=== PATIENT | female | born 1955 | race Caucasian/White ===

== ENCOUNTER 2019-06-02 10:57 | Emergency (ER) | payer BC ==
[~2019-06-02] VITALS: Ht 162.6 cm; Wt 113.4 kg
[2019-06-02] MEDS ORDERED: MONTELUKAST SOD10 MG PO (11:23)
[2019-06-02] MEDS ORDERED: CELEBREX200MG PO (11:23)
[2019-06-02] MEDS ORDERED: VERAPAMIL HCL360 MG PO (11:24)
[2019-06-02] MEDS ORDERED: LIPITOR20 MG PO (11:25)
[2019-06-02] MEDS ORDERED: NEXIUM40 M1 PO (11:25)
[2019-06-02] MEDS ORDERED: PRAMIPEXOLE DIHY1 MG PO (11:26)
[2019-06-02] MEDS ORDERED: SUMATRIPTAN SU100 MG PO (11:27)
[2019-06-02] MEDS ORDERED: DULOXETINE HCL30 MG PO (11:27)
[2019-06-02] MEDS ORDERED: PROAIR HFA IH (11:29)
== END 2019-06-02 15:47 | disposition home or self-care (01) ==
LOC: ER 10:57
DX: S40.022A Contusion of left upper arm, initial encounter (principal); S50.12XA Contusion of left forearm, initial encounter; M79.642 Pain in left hand; W06.XXXA Fall from bed, initial encounter; Y93.89 Activity, other specified; Y92.59 Other trade areas as the place of occurrence of the external cause; Y99.8 Other external cause status